=== PATIENT | female | born 1995 | race Caucasian/White ===

== ENCOUNTER 2019-12-15 10:01 | Emergency (ER) | payer OTHER ==
[~2019-12-15] VITALS: Ht 167.6 cm; Wt 92.6 kg
[2019-12-15] MEDS ORDERED: LEVO112T2 PO (10:12)
[2019-12-15 13:01] LABS: BASO # 0.1 10^3/uL (0.0-0.2); BASO % 0.3 % (0.0-1.0); EOS # 0.3 10^3/uL (0.0-0.5); HEMATOCRIT 36.9 % (36.0-47.0); HEMOGLOBIN 12.2 g/dl (12.0-15.5); LYMPH # 1.8 10^3/uL (1.5-5.0); LYMPH % 11.6 % (24.0-44.0); MEAN CORPUSCULAR HEMOGLOBIN 30.5 pg (27.0-33.0); MEAN CORPUSCULAR HGB CONC 33.1 g/dl (32.0-36.5); MEAN CORPUSCULAR VOLUME 92.3 fl (80.0-96.0); MONO # 1.4 10^3/uL (0.0-0.8); MONO % 8.9 % (0.0-5.0); NEUTROPHILS % 76.7 % (36.0-66.0); PLATELET COUNT, AUTOMATED 191 10^3/uL (150-450); WHITE BLOOD COUNT 15.6 10^3/uL (4.0-10.0)
[2019-12-15 13:08] LABS: APPEARANCE, URINE CLEAR (CLEAR); BACTERIA, URINE AUTO 1+ (NEGATIVE); BILIRUBIN, URINE AUTO NEGATIVE (NEGATIVE); BLOOD, URINE BLOOD NEGATIVE (NEGATIVE); COLOR, URINE YELLOW (YELLOW); GLUCOSE, URINE (UA) AUTO NEGATIVE (NEGATIVE); KETONE, URINE AUTO 1+ mg/dL (NEGATIVE); LEUKOCYTE ESTERASE, URINE AUTO 2+ (NEGATIVE); NITRITE, URINE AUTO NEGATIVE (NEGATIVE); PROTEIN, URINE AUTO NEGATIVE (NEGATIVE); RBC, URINE AUTO 3 /HPF (0-3); SPECIFIC GRAVITY URINE AUTO 1.006 (1.002-1.035); SQUAMOUS EPITHELIAL CELL UR AU 1 /HPF (0-6); UROBILINOGEN, URINE AUTO 0.2 mg/dL (0.0-2.0); WBC, URINE AUTO 2 /HPF (0-3)
[2019-12-15 13:14] LABS: INR 1.13; PROTHROMBIN TIME 14.2 SECONDS (11.8-14.0)
[2019-12-15 13:15] LABS: PARTIAL THROMBOPLASTIN TIME 30.2 SECONDS (25.0-38.4)
[2019-12-15 13:37] LABS: ALT/SGPT 31 U/L (12-78); BLOOD UREA NITROGEN 7 MG/DL (7-18); CARBON DIOXIDE LEVEL 23 MEQ/L (21-32); CHLORIDE LEVEL 104 MEQ/L (98-107); CREATININE FOR GFR 0.57 MG/DL (0.55-1.30); GLOMERULAR FILTRATION RATE > 60.0 (>60); GLUCOSE, FASTING 66 MG/DL (70-100); POTASSIUM SERUM 3.6 MEQ/L (3.5-5.1); SODIUM LEVEL 137 MEQ/L (136-145)
[2019-12-15 13:38] LABS: ALBUMIN 3.1 GM/DL (3.2-5.2); BILIRUBIN,DIRECT < 0.1 MG/DL (0.0-0.2); BILIRUBIN,TOTAL 0.4 MG/DL (0.2-1.0); CK-MB VALUE MASS < 1.0 NG/ML (<3.6); CPK CREATINE PHOSPHOKINASE 47 U/L (26-192); LIPASE 73 U/L (73-393); MB/CK RELATIVE INDEX 2.13 (< OR =4); NT-PRO BNP 195 PG/ML (<125); THYROID STIMULATING HORMONE 0.921 uIU/ML (0.358-3.740); TOTAL PROTEIN 6.9 GM/DL (6.4-8.2); TROPONIN I < 0.02 NG/ML (< 0.10)
--- NOTE | 2019-12-15 13:44 | REP ---
CHEST, SINGLE VIEW: There is no evidence of acute infiltrate. No pleural effusion is seen. The heart is normal in size. The mediastinal silhouette is unremarkable. The visualized osseous structures are intact. IMPRESSION: No acute pulmonary disease. Electronically Signed by Zana Souza MD 12/18/2019 11:39 P
--- NOTE | 2019-12-15 14:06 | REP ---
DEEP VENOUS ULTRASONOGRAPHY BILATERAL THIGHS, RULE OUT DVT: REASON: Bilateral pain and swelling. TECHNIQUE: Multiple ultrasonographic images of the deep venous structures of the bilateral thighs were obtained from the common femoral vein to the popliteal vein along with Doppler interrogation and color flow Doppler images. FINDINGS: There is no abnormal echogenic material seen within any of the visualized deep venous structures that would suggest acute thrombosis. Coaptation is unremarkable throughout. Doppler interrogation shows an expected response to respiratory variability and augmentation. The color flow images show what appears to be a normal vascular pattern throughout. IMPRESSION: There is no ultrasonographic evidence of deep venous thrombosis involving any of the visualized deep venous structures of the bilateral thigh, as described above. Electronically Signed by Cliff Bonner DO 12/15/2019 02:20 P
[2019-12-15 14:48] VITALS: BP 121/66
--- NOTE | 2019-12-15 20:36 | ECGEPIP ---
[facility] - ED Test Date: 2019-12-15 Pat Name: VIRGEN MOORE Department: Room: - Gender: Female Renal Dialysis Technician: zeferino : 1995 Requested By: Nayely De La Fuente Order Number: [id number] Reading MD: Joseph Kline Measurements Intervals [place] Rate: 77 P: 46 MO: 168 QRS: 41 QRSD: 94 T: 40 QT: 372 QTc: 421 Interpretive Statements SINUS RHYTHM BENIGN EARLY REPOLARIZATION NO PRIORS FOR COMPARISON Electronically Signed on 12-15-2019 20:35:57 EDT by Joseph Kline
== END 2019-12-15 14:50 | disposition home or self-care (01) ==
LOC: M ED 10:01
DX: O26.892 Other specified pregnancy related conditions, second trimester (principal); R07.9 Chest pain, unspecified; Z3A.18 18 weeks gestation of pregnancy; Z79.899 Other long term (current) drug therapy

== ENCOUNTER 2020-05-08 15:44 | Outpatient (CLI) | payer OTHER ==
[~2020-05-08] VITALS: Ht 167.6 cm; Wt 105.9 kg
[~2020-05-08 15:44] MED LIST: LEVO112T2 PO
[2020-05-08 16:12] VITALS: BP 125/67
[2020-05-08] MEDS ORDERED: LR 1,000 ML IV ONE (16:30)
[2020-05-08] MEDS ORDERED: MULTTAB20 PO (16:32)
[2020-05-08] MEDS ORDERED: ACET-907 PO (16:32)
[2020-05-08] MEDS ORDERED: BUTA1CAP4 PO (16:32)
[2020-05-08] MEDS ORDERED: PROM50TA4 PO (16:32)
[2020-05-08 16:58] LABS: HEMATOCRIT 39.3 % (36.0-47.0); HEMOGLOBIN 12.9 g/dl (12.0-15.5); MEAN CORPUSCULAR HEMOGLOBIN 30.3 pg (27.0-33.0); MEAN CORPUSCULAR HGB CONC 32.8 g/dl (32.0-36.5); MEAN CORPUSCULAR VOLUME 92.3 fl (80.0-96.0); PLATELET COUNT, AUTOMATED 172 10^3/uL (150-450); RED BLOOD COUNT 4.26 10^6/uL (4.00-5.40); WHITE BLOOD COUNT 15.2 10^3/uL (4.0-10.0)
[2020-05-08 17:15] VITALS: BP 118/70
[2020-05-08 17:15] LABS: APPEARANCE, URINE HAZY (CLEAR); BACTERIA, URINE AUTO 1+ (NEGATIVE); BILIRUBIN, URINE AUTO NEGATIVE (NEGATIVE); BLOOD, URINE BLOOD NEGATIVE (NEGATIVE); COLOR, URINE STRAW (YELLOW); GLUCOSE, URINE (UA) AUTO NEGATIVE (NEGATIVE); KETONE, URINE AUTO NEGATIVE (NEGATIVE); LEUKOCYTE ESTERASE, URINE AUTO 2+ (NEGATIVE); NITRITE, URINE AUTO NEGATIVE (NEGATIVE); PROTEIN, URINE AUTO NEGATIVE (NEGATIVE); RBC, URINE AUTO 1 /HPF (0-3); SPECIFIC GRAVITY URINE AUTO 1.003 (1.002-1.035); SQUAMOUS EPITHELIAL CELL UR AU 4 /HPF (0-6); UROBILINOGEN, URINE AUTO 0.2 mg/dL (0.0-2.0); WBC, URINE AUTO 2 /HPF (0-3)
[2020-05-08 17:17] LABS: ALBUMIN 2.8 GM/DL (3.2-5.2); ALT/SGPT 33 U/L (12-78); BILIRUBIN,TOTAL 0.3 MG/DL (0.2-1.0); BLOOD UREA NITROGEN 13 MG/DL (7-18); CALCIUM LEVEL 9.4 MG/DL (8.5-10.1); CARBON DIOXIDE LEVEL 24 MEQ/L (21-32); CHLORIDE LEVEL 107 MEQ/L (98-107); CREATININE FOR GFR 0.76 MG/DL (0.55-1.30); GLOMERULAR FILTRATION RATE > 60.0 (>60); GLUCOSE, FASTING 72 MG/DL (70-100); POTASSIUM SERUM 4.3 MEQ/L (3.5-5.1); SODIUM LEVEL 136 MEQ/L (136-145); TOTAL PROTEIN 6.3 GM/DL (6.4-8.2)
[2020-05-08 17:37] LABS: CREATININE,RANDOM URINE 22.7 MG/DL; TOTAL PROTEIN,RANDOM URINE 5.8 MG/DL (0.0-12.0)
[2020-05-08] MEDS ORDERED: PERCOCET 5MG/325MG TAB PO ONE (18:00)
[2020-05-08 18:17] LABS: LDH LACTATE DEHYDROGENASE 151 U/L (84-246); URIC ACID 5.6 MG/DL (2.6-6.0)
[2020-05-08 18:21] VITALS: BP 122/73
--- NOTE | 2020-05-08 19:28 | IPNPDOC ---
Obstetrical Progress Note Date of Service May 08, 2020 Subjective TRANSFERRED FROM OFFICE WITH HISTORY OF 3 DAYS HEADACHE UNRESOLVED WITH MEDICA TION . NO RUQ PAIN NO VISUAL DISTURBANCES NO SWELLING Objective Vital Signs Date Time Temp Pulse Resp B/P (MAP) Pulse Ox O2 Delivery O2 Flow Rate FiO2 05/08/20 18:21 98.7 79 122/73 (89) 05/08/20 18:06 18 Room Air Assessment Heart Rate (FHR): 140 Variability: Moderate Accelerations: Positive Decelerations: None Tocometer Contractions: No Sterile Vaginal Examination Postion/Presentation: Cephalic presentation Assessment and Plan Age: 24 : 1 Term: 0 Pre-term: 0 Abortions: 0 Livin EGA at Admission: 38.1 Weeks & Days Vital Signs Date Time Temp Pulse Resp B/P (MAP) Pulse Ox O2 Delivery O2 Flow Rate FiO2 05/08/20 18:36 18 05/08/20 18:21 98.7 79 122/73 (89) 05/08/20 18:06 18 Room Air 05/08/20 17:15 76 118/70 (86) 05/08/20 16:12 98.6 82 18 125/67 (86) Laboratory Tests 05/08/20 16:40: White Blood Count 15.2H, Red Blood Count 4.26, Hemoglobin 12.9, Hematocrit 39.3, Mean Corpuscular Volume 92.3, Mean Corpuscular Hemoglobin 30.3, Mean Corpuscular Hemoglobin Concent 32.8, Red Cell Distribution Width 13.4, Platelet Count 172, Nucleated Red Blood Cells % (auto) 0.0, Sodium Level 136, Potassium Level 4.3, Chloride Level 107, Carbon Dioxide Level 24, Anion Gap 5L, Blood Urea Nitrogen 13, Creatinine 0.76, Glomerular Filtration Rate > 60.0, Fasting Glucose 72, Uric Acid 5.6, Calcium Level 9.4, Total Bilirubin 0.3, Aspartate Amino Transf (AST/SGOT) 23, Alanine Aminotransferase (ALT/SGPT) 33, Alkaline Phosphatase 171H, Lactate Dehydrogenase 151, Total Protein 6.3L, Albumin 2.8L, Albumin /Globulin Ratio 0.8L 05/08/20 16:43: Urine Color STRAW, Urine Appearance HAZY, Urine pH 7.0, Urine Specific [place] 1.003, Urine Protein NEGATIVE, Urine Glucose (Auto)(UA) NEGATIVE, Urine Ketones (Auto) NEGATIVE, Urine Blood NEGATIVE, Urine Nitrite NEGATIVE, Urine Bilirubin NEGATIVE, Urine Urobilinogen 0.2, Urine Leukocyte Esterase (Auto) 2+H, Urine WBC (Auto) 2, Urine RBC (Auto) 1, Urine Hyaline Casts (Auto) 0, Urine Bacteria (Auto) 1+H, Urine Squamous Epithelial Cells 4, Urine Sperm (Auto) , Urine Random Creatinine 22.7, Urine Random Total Protein 5.8 Laboratory Tests 05/08/20 16:40 Status: Reassuring Group B Streptococcus: Negative Anticipate: Other Additional Comments REVIEWED WITH PATIENT WITH SYMPTOMS BETTER WITH PERCOCET CHEMISTRY NORMAL, P/C RATIO .25 PLAN KEEP HYDRATED IF HEADACHES RETURN COME TO TRIAGE FOR ASSESSMENT PATIENT EXPRESSED UNDERSTANDING . SENT HOME UNDELIVERED Tom Pratt MD May 08, 2020 19:08
== END 2020-05-08 19:06 | disposition home or self-care (01) ==
LOC: M LDO 15:44
PROVIDERS: ATTEND Registered Nurse
DX: O99.353 Diseases of the nervous system complicating pregnancy, third trimester (principal); R51.9 Headache, unspecified; Z3A.38 38 weeks gestation of pregnancy; Z91.010 Allergy to peanuts; Z91.018 Allergy to other foods
CPT/HCPCS: 36415; 59025; 80053; 81001; 82570; 83615; 84156; 84550; 85027; 86850; 86870; 86900; 86901; 96360; G0378; G0463

== ENCOUNTER 2020-05-12 06:01 | Outpatient (CLI) | payer OTHER ==
[~2020-05-12] VITALS: Ht 167.6 cm; Wt 106.5 kg
[~2020-05-12 06:01] MED LIST changes: +ACET-907 PO; +BUTA1CAP4 PO; +MULTTAB20 PO; +PROM50TA4 PO
[2020-05-12 06:29] VITALS: BP 121/75
--- NOTE | 2020-05-12 07:22 | IPNPDOC ---
Text Note Date of Service The patient was seen on 05/12/20. NOTE 05/12/20 0700 24 yo LMP 08/10/2019 EDC 05/16/20 AT 39.2 WEEKS IRREGULAR CONTRACTIONS NO VAGINAL BLEEDING NO LOSS OF FLUID GOOD MOVEMENT. RISK FACTORS LANCE THYROID RH NEGATIVE CF CARRIER OVARIAN CYST 7.5 CM PHYSICAL EXAM NO ACUTE DISTRESS OCCASIONAL CONTRACTIONS CATEGORY 1 STRIP STERILE EXAM VERTEX HIGH SOFT 50% EFFACED POSTERIOR TIGHT 2 CM NO BLOOD NO DISCHARGE . PLAN MONITOR HYDRATE HOME WITH DISCHARGE INSTRUCTIONS APPOINTMENT FT DRUM OB . EXPRESSED UNDERSTANDING PLAN OF CARE VS,Fishbone, I+O VS, Fishbone, I+O Vital Signs Date Time Temp Pulse Resp B/P (MAP) Pulse Ox O2 Delivery O2 Flow Rate FiO2 05/12/20 06:29 98.9 91 16 121/75 (90) Tom Pratt MD May 12, 2020 07:21
== END 2020-05-12 07:10 | disposition home or self-care (01) ==
LOC: M LDO 06:01
PROVIDERS: ATTEND Obstetrics & Gynecology
DX: O47.1 False labor at or after 37 completed weeks of gestation (principal); O99.280 Endocrine, nutritional and metabolic diseases complicating pregnancy, unspecified trimester; E06.3 Autoimmune thyroiditis; Z3A.39 39 weeks gestation of pregnancy; Z91.018 Allergy to other foods; Z67.91 Unspecified blood type, Rh negative
CPT/HCPCS: 59025; G0378; G0463

== ENCOUNTER 2020-06-04 12:12 | Emergency (ER) | payer OTHER ==
[~2020-06-04] VITALS: Ht 167.6 cm; Wt 89.4 kg
[2020-06-04 12:12] VITALS: BP 128/76
== END 2020-06-04 13:34 | disposition home or self-care (01) ==
LOC: M ED 12:12
DX: T59.91XA Toxic effect of unspecified gases, fumes and vapors, accidental (unintentional), initial encounter (principal); E03.9 Hypothyroidism, unspecified; Z79.890 Hormone replacement therapy; Z79.899 Other long term (current) drug therapy

== ENCOUNTER → 2021-07-29 | Outpatient (CLI) | payer OTHER ==
[2021-07-29 09:05] LABS: FREE T4 1.19 NG/DL (0.76-1.46); THYROID STIMULATING HORMONE 1.09 uIU/ML (0.358-3.740)
== END ==
LOC: M LAB 07:31
PROVIDERS: ATTEND Student in an Organized Health Care Education/Training Program
DX: E03.9 Hypothyroidism, unspecified (principal)